=== PATIENT | male | born 1965 | race Two or more races ===

== ENCOUNTER 2016-07-19 09:36 | Emergency (ER) | payer BC ==
[~2016-07-19] VITALS: Ht 162.6 cm; Wt 77.1 kg
[~2016-07-19 09:36] MED LIST: ALBU8.5H2 IH; PROAIR
[2016-07-19 09:41] VITALS: BP 126/74
== END 2016-07-19 10:25 | disposition home or self-care (01) ==
LOC: ER 09:39
DX: H10.9 Unspecified conjunctivitis (principal); L50.9 Urticaria, unspecified; J45.909 Unspecified asthma, uncomplicated
CPT/HCPCS: 99283; A4606; Z7610

== ENCOUNTER 2016-07-31 20:59 | Emergency (ER) | payer BC ==
[~2016-07-31] VITALS: Ht 165.1 cm; Wt 72.6 kg
[2016-07-31 21:04] VITALS: BP 151/102
[2016-07-31] MEDS ORDERED: ALBUTEROL FS 2.5 MG/3 ML VIAL.NEB ONE (22:23)
[2016-07-31] MEDS ORDERED: IBUPROFEN 600 MG TABLET PO ONE ×2 (22:30→23:17)
[2016-07-31] MEDS ORDERED: ALBUTEROL FS 2.5 MG/3 ML VIAL.NEB NEB ONE (22:30)
== END 2016-07-31 23:59 | disposition home or self-care (01) ==
LOC: ER 21:02
DX: J45.909 Unspecified asthma, uncomplicated (principal); M54.5 Low back pain; Z87.891 Personal history of nicotine dependence
CPT/HCPCS: 72110; 94640; 99284; A4606; Z7610

== ENCOUNTER 2016-08-15 11:26 | Emergency (ER) | payer BC ==
[~2016-08-15] VITALS: Ht 165.1 cm; Wt 72.6 kg
[2016-08-15] MEDS ORDERED: ALBUTEROL FS 2.5 MG/3 ML VIAL.NEB ONE (11:38)
[2016-08-15] MEDS ORDERED: IPRATROPIUM NEB FS 0.5 MG/2.5 ML AMPUL.NEB ONE (11:39)
[2016-08-15] MEDS ORDERED: predniSONE 20 MG TABLET ONE (11:54)
[2016-08-15] MEDS ORDERED: IPRATROPIUM NEB FS 0.5 MG/2.5 ML AMPUL.NEB NEB ONE (12:00)
[2016-08-15] MEDS ORDERED: predniSONE 20 MG TABLET PO ONE (12:00)
[2016-08-15] MEDS ORDERED: ALBUTEROL FS 2.5 MG/3 ML VIAL.NEB CONTNEB ONE (12:00)
[2016-08-15 12:28] VITALS: BP 125/86
== END 2016-08-15 12:28 | disposition home or self-care (01) ==
LOC: ER 11:29
DX: J45.909 Unspecified asthma, uncomplicated (principal)
CPT/HCPCS: 94640 ×2; 99284; A4606; J7512; Z7610

== ENCOUNTER 2017-07-24 18:28 | Emergency (ER) | payer BC, MEDICAID ==
[~2017-07-24] VITALS: Ht 177.8 cm; Wt 81.6 kg
[~2017-07-24 18:28] MED LIST changes: -ALBU8.5H2 IH; +ALBU8.5H8 IH
--- NOTE | 2017-07-24 18:37 | NUR ---
PT AMBULATORY TO ER BED 13. C/O SOB, HX OF ASTHMA. STATES INHALER NOT WORKING. PLACED ON MONITOR. HYPERTENSIVE OTHERWISE STABLE VITALS. AWAITING MD MORA.
[2017-07-24] MEDS ORDERED: ALBUTEROL FS 2.5 MG/0.5 ML VIAL.NEB NEB STA (18:40)
--- NOTE | 2017-07-24 18:43 | NUR ---
RAINER TUCKER AT BEDSIDE FOR EVAL.
--- NOTE | 2017-07-24 18:48 | NUR ---
RT AT BEDSIDE FOR BREATHING TREATMENT.
[2017-07-24] MEDS ORDERED: ALBUTEROL FS 2.5 MG/3 ML VIAL.NEB ONE (18:51)
[2017-07-24] MEDS ORDERED: methylPREDNISolone SOD SUCC 125 MG/2ML VIAL IM SCH (19:00)
[2017-07-24] MEDS ORDERED: ALBUTEROL FS 2.5 MG/3 ML VIAL.NEB NEB ONE (19:30)
[2017-07-24] MEDS ORDERED: IPRATROPIUM NEB FS 0.5 MG/2.5 ML AMPUL.NEB NEB ONE (19:30)
[2017-07-24] MEDS ORDERED: methylPREDNISolone SOD SUCC 125 MG/2ML VIAL ONE (19:35)
[2017-07-24] MEDS ORDERED: ALBUTEROL FS 2.5 MG/0.5 ML VIAL.NEB ONE (19:48)
[2017-07-24] MEDS ORDERED: IPRATROPIUM NEB FS 0.5 MG/2.5 ML AMPUL.NEB ONE (19:49)
[2017-07-24] MEDS ORDERED: Magnesium 1GM/D5W 100ML PREMIX 200 ML IV ONE (20:20)
[2017-07-24] MEDS ORDERED: Magnesium 1GM/D5W 100ML PREMIX 0 ML IV ONE (20:33)
--- NOTE | 2017-07-24 21:41 | NUR ---
Patient does not wish to proceed with medical care recommended by Luba TUCKER. Patient given information related to possible complications, up to and including , which could occur as a result of leaving the hospital at this time. Patient verbalizes understanding of risks involved due to leaving against medical advice. Patient has signed AMA form.Patient discharged to home in stable condition. Written and verbal after care instructions given. Patient verbalizes understanding of instruction.
[2017-07-24 21:43] VITALS: BP 135/92
== END 2017-07-24 21:45 | disposition left against medical advice (07) ==
LOC: ER 18:30
DX: J45.901 Unspecified asthma with (acute) exacerbation (principal); F10.10 Alcohol abuse, uncomplicated; F17.200 Nicotine dependence, unspecified, uncomplicated; Z53.20 Procedure and treatment not carried out because of patient's decision for unspecified reasons
CPT/HCPCS: 71045-TC; A4606; Z7610

== ENCOUNTER 2019-08-07 12:28 | Emergency (ER) | payer MEDICAID ==
[~2019-08-07] VITALS: Ht 165.1 cm; Wt 72.6 kg
[2019-08-07 12:36] VITALS: BP 135/33
--- NOTE | 2019-08-07 12:57 | NUR ---
PT SEEN AND EXAMINED DEGRASSE SAND WORKER.
[2019-08-07] MEDS ORDERED: IPRATROPIUM NEB FS 0.5 MG/2.5 ML AMPUL.NEB NEB ONE (13:00)
[2019-08-07] MEDS ORDERED: ALBUTEROL FS 2.5 MG/3 ML VIAL.NEB NEB ONE (13:00)
--- NOTE | 2019-08-07 13:09 | NUR ---
RT AT BEDSIDE FOR BREATHING TREATMENT.
--- NOTE | 2019-08-07 13:14 | NUR ---
MANAGER OF ADMINISTRATION AT BEDSIDE FOR XRAY.
[2019-08-07] MEDS ORDERED: ALBUTEROL FS 2.5 MG/3 ML VIAL.NEB ONE (13:36)
[2019-08-07] MEDS ORDERED: IPRATROPIUM NEB FS 0.5 MG/2.5 ML AMPUL.NEB ONE (13:36)
--- NOTE | 2019-08-07 13:57 | NUR ---
Patient discharged to home in stable condition. Written and verbal after care instructions given. Patient verbalizes understanding of instruction.
== END 2019-08-07 13:58 | disposition home or self-care (01) ==
LOC: ER 12:42
DX: J20.9 Acute bronchitis, unspecified (principal); J45.909 Unspecified asthma, uncomplicated; F10.10 Alcohol abuse, uncomplicated; Y90.9 Presence of alcohol in blood, level not specified; Z79.899 Other long term (current) drug therapy
CPT/HCPCS: 71045-TC

== ENCOUNTER 2019-09-02 20:17 | Emergency (ER) | payer MEDICAID ==
[~2019-09-02] VITALS: Ht 165.1 cm; Wt 74.8 kg
[2019-09-02 20:26] VITALS: BP 171/94
== END 2019-09-02 20:50 | disposition home or self-care (01) ==
LOC: ER 20:17
DX: J20.9 Acute bronchitis, unspecified (principal); J45.909 Unspecified asthma, uncomplicated; Z79.899 Other long term (current) drug therapy

== ENCOUNTER 2020-03-14 14:40 | Emergency (ER) | payer MEDICAID ==
[~2020-03-14] VITALS: Ht 167.6 cm; Wt 72.6 kg
--- NOTE | 2020-03-14 15:00 | NUR ---
FROM HOME C/O BACK PAIN SINCE YESTERDAY, PT STS "LIFTED HEAVY THINGS AT WORK" PATIENT A/OX4, BREATHING EVEN AND UNLABORED, AMBULATORY WITH STEADY GAIT. NEEDS ATTENDED. KEPT COMFORTABLE.
[2020-03-14] MEDS ORDERED: HYDROCODONE/APAP 5/325MG TABLET ONE (15:23)
[2020-03-14] MEDS ORDERED: IBUPROFEN 400 MG TABLET ONE (15:23)
[2020-03-14] MEDS ORDERED: IBUPROFEN 400 MG TABLET PO ONE (15:30)
[2020-03-14] MEDS ORDERED: HYDROCODONE/APAP 5/325MG TABLET PO ONE (15:30)
[2020-03-14 16:09] LABS: BASOPHILS % (AUTO) 0.6 % (0.0-2.0); EOSINOPHILS % (AUTO) 3.5 % (0.0-6.0); HEMATOCRIT 43 % (39-51); HEMOGLOBIN 14.1 g/dL (13.5-17.5); LYMPHOCYTES # (AUTO) 2.3 /CMM (0.8-4.8); LYMPHOCYTES % (AUTO) 37.6 % (20.0-44.0); MEAN CORPUSCULAR HGB CONC 33 g/dl (31.0-36.0); MEAN CORPUSCULAR VOLUME 97 fL (80-96); MONOCYTES # (AUTO) 0.4 /CMM (0.1-1.30); MONOCYTES % (AUTO) 6.6 % (2.0-12.0); NEUTROPHILS # (AUTO) 3.2 /CMM (1.8-8.9); NEUTROPHILS % (AUTO) 51.7 % (43.0-81.0); PLATELET COUNT (AUTO) 237 /CMM (150-450); WHITE BLOOD COUNT (AUTO) 6.2 K/uL (4.3-11.0)
[2020-03-14 16:30] LABS: APPEARANCE,URINE CLEAR (CLEAR); BILIRUBIN,URINE NEGATIVE (NEGATIVE); BLOOD, URINE NEGATIVE Ery/uL (NEGATIVE); COLOR,URINE YELLOW (YELLOW); KETONES,URINE NEGATIVE (NEGATIVE); LEUKOCYTE ESTERASE ,URINE NEGATIVE (NEGATIVE); NITRITE, URINE NEGATIVE (NEGATIVE); PROTEIN,URINE NEGATIVE (NEGATIVE); UGLUCOSE NEGATIVE (NEGATIVE); UROBILINOGEN,URINE 0.2 EU/dL (0.2)
[2020-03-14 16:34] LABS: CALCIUM, SERUM 9.1 mg/dL (8.5-10.1); CARBON DIOXIDE 31 mmol/L (21-32); CHLORIDE 104 mmol/L (98-107); CREATININE 0.8 mg/dL (0.6-1.3); GLUCOSE 90 mg/dL (74-106); LIPASE 91 U/L (73-393); POTASSIUM 4.7 mmol/L (3.5-5.1); SODIUM SERUM 141 mmol/L (136-145); UREA NITROGEN, BLOOD 15 mg/dL (7-18)
[2020-03-14 17:16] VITALS: BP 130/75
--- NOTE | 2020-03-14 17:16 | NUR ---
Patient discharged to home in stable condition. Written and verbal after care instructions given. Patient verbalizes understanding of instruction.
== END 2020-03-14 17:16 | disposition home or self-care (01) ==
LOC: ER 14:45
DX: M51.34 Other intervertebral disc degeneration, thoracic region (principal); J45.909 Unspecified asthma, uncomplicated; Z98.890 Other specified postprocedural states; Z79.899 Other long term (current) drug therapy
CPT/HCPCS: 36415; 72100-TC; 80048-TC; 81000-TC; 83690-TC; 84484-TC; 85025-TC

== ENCOUNTER 2020-04-27 10:06 | Emergency (ER) | payer MEDICAID ==
[~2020-04-27] VITALS: Ht 165.1 cm; Wt 72.6 kg
--- NOTE | 2020-04-27 10:32 | NUR ---
PT BIB SELF C/O CONGESTION, PT STATES THAT HE WAS HAVING FEVER LAST NIGHT. UPON ARRIVAL PTS TEMP WAS 99.1. VS CHECKED. AWAITING MD MORA.
--- NOTE | 2020-04-27 10:58 | NUR ---
CALLED LAB FOR COVID SWAB AND RAPID FLU. STATED THEY WILL DELIVER
--- NOTE | 2020-04-27 10:58 | NUR ---
RT CALLED FOR BREATHING TX
[2020-04-27] MEDS ORDERED: predniSONE 20 MG TABLET ONE (10:59)
[2020-04-27] MEDS ORDERED: ACETAMINOPHEN ES 500 MG TABLET ONE (10:59)
[2020-04-27] MEDS ORDERED: ALBUTEROL FS 2.5 MG/3 ML VIAL.NEB CONTNEB ONE (11:00)
[2020-04-27] MEDS ORDERED: ACETAMINOPHEN ES 500 MG TABLET PO ONE (11:00)
[2020-04-27] MEDS ORDERED: IPRATROPIUM NEB FS 0.5 MG/2.5 ML AMPUL.NEB NEB ONE (11:00)
[2020-04-27] MEDS ORDERED: predniSONE 20 MG TABLET PO ONE (11:00)
[2020-04-27] MEDS ORDERED: ALBUTEROL FS 2.5 MG/3 ML VIAL.NEB ONE (11:08)
[2020-04-27] MEDS ORDERED: IPRATROPIUM NEB FS 0.5 MG/2.5 ML AMPUL.NEB ONE (11:08)
--- NOTE | 2020-04-27 11:10 | NUR ---
COVID SWAB AND RAPID IINFLUENZA SWAB DONE. SENT TO LAB
--- NOTE | 2020-04-27 12:14 | NUR ---
LAB CALLED PT COVID NEGATIVE (-)
[2020-04-27 12:30] VITALS: BP 142/81
--- NOTE | 2020-04-27 12:30 | NUR ---
Patient discharged to home in stable condition. Written and verbal after care instructions given. Patient verbalizes understanding of instruction.
== END 2020-04-27 12:30 | disposition home or self-care (01) ==
LOC: ER 10:14
DX: J45.901 Unspecified asthma with (acute) exacerbation (principal); Z20.828 Contact with and (suspected) exposure to other viral communicable diseases
CPT/HCPCS: 87426; 87804; 94640; 99283; C9803; J7512

== ENCOUNTER 2020-12-17 14:33 | Emergency (ER) | payer MEDICAID ==
[~2020-12-17] VITALS: Ht 165.1 cm; Wt 72.6 kg
--- NOTE | 2020-12-17 14:45 | NUR ---
PT CAME IN C/O LOW BACK AND BILATERAL WRIST PAIN OF 5/10, X 3 DAYS,STS, HE'S BEEN BUSY AT WORK. AOX4, NO SOB NOTED AT THIS TIME, NO SIGN OF ANY ACUTE DISTRESS NOTED. WILL CONTINUE WITH PLAN OF CARE
[2020-12-17] MEDS ORDERED: KETOROLAC TROMETHAMINE INJ 30 MG/ML VIAL ONE (15:59)
[2020-12-17] MEDS ORDERED: KETOROLAC TROMETHAMINE INJ 60 MG/2 ML VIAL IM ONE (16:00)
[2020-12-17] MEDS ORDERED: METH-807 PO (16:07)
[2020-12-17] MEDS ORDERED: IBUP-1957 PO (16:07)
--- NOTE | 2020-12-17 16:08 | NUR ---
TORADOL NON ADMINISTERED D/T PT REFUSED STATING " I PREFER ORAL MEDICATION", BENEFITS AND RISK OR REFUSING MEDS EXPLAINED, GARRETT RITTER MADE AWARE. MEDICATION WASTED AND WITNESSED WITH ANOTHER NURSE, CAMELIA BARRIENTOS. WILL CONTINUE WITH PLAN OF CARE
[2020-12-17] MEDS ORDERED: IBUPROFEN 400 MG TABLET ONE (16:12)
[2020-12-17] MEDS ORDERED: IBUPROFEN 400 MG TABLET PO ONE (16:30)
--- NOTE | 2020-12-17 16:32 | NUR ---
Pt staes "feel Better" Patient discharged to home in stable condition. Written and verbal after care instructions given. Patient verbalizes understanding of instruction.
[2020-12-17 16:33] VITALS: BP 125/76
== END 2020-12-17 17:33 | disposition home or self-care (01) ==
LOC: ER 14:40
DX: M54.5 Low back pain (principal); J45.909 Unspecified asthma, uncomplicated; Z98.890 Other specified postprocedural states; Z79.899 Other long term (current) drug therapy
CPT/HCPCS: 99283; J1885

== ENCOUNTER 2022-06-08 02:00 | Inpatient (IN) | payer MEDICAID ==
[~2022-06-08] VITALS: Ht 177.8 cm; Wt 72.6 kg
[~2022-06-08 02:00] MED LIST changes: +IBUP-1957 PO; +METH750T3 PO
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
[2022-06-08] MEDS ORDERED: IBUPROFEN 400 MG TABLET ONE (02:40)
--- NOTE | 2022-06-08 02:43 | NUR ---
patient going to ct
[2022-06-08] MEDS ORDERED: IBUPROFEN 400 MG TABLET PO ONE (03:00)
[2022-06-08] MEDS ORDERED: MORPHINE SULFATE INJ 2 MG/ML DISP.SYRIN IV ONE (05:30)
[2022-06-08] MEDS ORDERED: ONDANSETRON HCL/PF 4 MG/2 ML VIAL IV ONE (05:30)
[2022-06-08] MEDS ORDERED: ONDANSETRON HCL/PF 4 MG/2 ML VIAL ONE (05:33)
[2022-06-08] MEDS ORDERED: MORPHINE SULFATE INJ 4 MG/ML DISP.SYRIN ONE (05:34)
--- NOTE | 2022-06-08 05:35 | NUR ---
COVID SWAB DONE AND SENT TO LAB
--- NOTE | 2022-06-08 05:42 | NUR ---
[facility] PAGED
--- NOTE | 2022-06-08 05:44 | NUR ---
BLOOD COLLECTED AND SENT TO LAB
--- NOTE | 2022-06-08 05:44 | NUR ---
IV LINE ESTABLISHED, [id number]
[2022-06-08 05:55] LABS: BASOPHILS # (AUTO) 0.2 K/uL (0.0-0.2); BASOPHILS % (AUTO) 1.9 % (0.0-2.0); EOSINOPHILS % (AUTO) 0.6 % (0.0-6.0); HEMATOCRIT 41 % (39-51); HEMOGLOBIN 13.8 g/dL (13.5-17.5); LYMPHOCYTES # (AUTO) 3.4 K/uL (0.8-4.8); LYMPHOCYTES % (AUTO) 28.5 % (20.0-44.0); MEAN CORPUSCULAR HGB CONC 34 g/dl (31.0-36.0); MEAN CORPUSCULAR VOLUME 95 fL (80-96); MONOCYTES # (AUTO) 2.4 K/uL (0.1-1.30); NEUTROPHILS # (AUTO) 5.8 K/uL (1.8-8.9); PLATELET COUNT (AUTO) 274 K/uL (150-450); RED BLOOD CELL COUNT(AUTO) 4.34 MIL/uL (4.5-6.0); WHITE BLOOD COUNT (AUTO) 11.9 K/uL (4.3-11.0)
[2022-06-08 06:00] LABS: CALCIUM, SERUM 9.1 mg/dL (8.5-10.1); CREATININE 0.9 mg/dL (0.6-1.3); POTASSIUM 4.3 mmol/L (3.5-5.1)
[2022-06-08] MEDS ORDERED: ACETAMINOPHEN 325 MG TABLET PO PRN (06:00)
[2022-06-08] MEDS ORDERED: ONDANSETRON HCL/PF 4 MG/2 ML VIAL IVP PRN (06:00)
[2022-06-08] MEDS ORDERED: MORPHINE SULFATE INJ 2 MG/ML DISP.SYRIN IV PRN (06:00)
--- NOTE | 2022-06-08 08:59 | NUR ---
seen by dr escalante,patient wants to go home, daughter called to pick him up per request
--- NOTE | 2022-06-08 09:00 | NUR ---
PT DAUGHTER NUMBER IS [phone]
--- NOTE | 2022-06-08 09:31 | NUR ---
room 323-2
--- NOTE | 2022-06-08 09:55 | NUR ---
report given to josephine DENISE
--- NOTE | 2022-06-08 10:00 | NUR ---
moved to inpatient room safely
[2022-06-08 12:00] VITALS: BP 138/94
[2022-06-08 16:00] VITALS: BP 121/64
[2022-06-08] MEDS: HYDROCODONE/APAP 5/325MG TABLET PO PRN ×2 (17:10→21:33)
[2022-06-08 17:55] LABS: BAND % (MANUAL) 1 % (0.0-5.0); LYMPHOCYTES % (MANUAL) 24 % (16-48); MONOCYTES % (MANUAL) 15 % (0-11.0); NEUTROPHILS % (MANUAL) 60 (42-76)
--- NOTE | 2022-06-08 19:45 | NUR ---
MS DENISE OPENING NOTE RECEIVED PATIENT IN BED; AWAKE, ALERT AND ORIENTED X 4. BREATHING EVEN AND NONLABORED. ON ROOM AIR; TOLERATING WELL. NOT IN ANY FORM OF RESPIRATORY OR CARDIAC DISTRESS NOTED. NO C/O ANY PAIN OR DISCOMFORT MADE AT THIS TIME. WITH IV ACCESS ON RIGHT ANTECUBITAL 20G; PATENT, INTACT AND SALINE LOCKED. ABLE TO MAKE NEEDS KNOWN. SAFETY MEASURES IMPLEMENTED: CALL LIGHT AND TABLE WITHIN REACH, SIDE RAILS UP X 2, BED IN LOWEST LOCKED POSITION. WILL CONTINUE TO MONITOR. Addendum: 06/09/22 at 0043 by CARLY HARKINS RN WITH IV ACCESS ON LEFT AC 20G; PATENT, INTACT AND SALINE LOCKED.
[2022-06-08 20:00] VITALS: BP 114/67
--- NOTE | 2022-06-08 21:33 | NUR ---
RN NOTE PATIENT C/O LOWER BACK PAIN WITH 7/10 PAIN SCALE. PRN NORCO 5/325 MG 1 TAB GIVEN PO ORDERED. PATIENT MADE COMFORTABLE IN BED. WILL CONTINUE TO MONITOR AND REASSESS PATIENT.
[2022-06-09] MEDS: HYDROCODONE/APAP 5/325MG TABLET PO PRN (02:09)
--- NOTE | 2022-06-09 02:09 | NUR ---
RN NOTE COVERING FOR CAMELIA CARROLL WHILE ON BREAK. PT COMPLAINED OF BACK PAIN 12/25. ADMINISTERED NORCO 5-325 MG FOR MODERATE PAIN. MADE COMFORTABLE IN BED. ALL NEEDS MET AT THIS TIME.
--- NOTE | 2022-06-09 06:45 | NUR ---
MS RN CLOSING NOTE PATIENT IN BED; AWAKE, A/O X 4. STABLE ON ROOM AIR. BREATHING EQUAL AND UNLABORED. IN NO ACUTE DISTRESS NOTED. DENIES ANY PAIN OR DISCOMFORT AT THIS TIME. WITH IV ACCESS ON LEFT AC 20G; PATENT, INTACT AND SALINE LOCKED. ALL DUE MEDS GIVEN ORDERED. ALL NEEDS ATTENDED TO. SAFETY MEASURES MAINTAINED: CALL LIGHT AND TABLE WITHIN EASY REACH, SIDE RAILS UP X 2, BED IN LOWEST LOCKED POSITION. ENDORSED TO MORNING SHIFT FOR DAVID.
[2022-06-09 07:00] VITALS: BP 124/61
--- NOTE | 2022-06-09 07:40 | NUR ---
RN OPENING NOTE RECEIVED PATIENT IN BED; AWAKE, ALERT AND ORIENTED X 4. BREATHING EVEN AND NONLABORED. ON ROOM AIR; TOLERATING WELL. NOT IN ANY FORM OF RESPIRATORY OR CARDIAC DISTRESS NOTED. NO C/O ANY PAIN OR DISCOMFORT MADE AT THIS TIME. WITH IV ACCESS ON LEFT ANTECUBITAL 20G; PATENT, INTACT AND SALINE LOCKED. ABLE TO MAKE NEEDS KNOWN. SAFETY MEASURES IMPLEMENTED: CALL LIGHT AND TABLE WITHIN REACH, SIDE RAILS UP X 2, BED IN LOWEST LOCKED POSITION. WILL CONTINUE TO MONITOR.
[2022-06-09 11:27] LABS: BASOPHILS % (AUTO) 0.6 % (0.0-2.0); EOSINOPHILS % (AUTO) 4.1 % (0.0-6.0); HEMATOCRIT 41 % (39-51); HEMOGLOBIN 13.7 g/dL (13.5-17.5); LYMPHOCYTES # (AUTO) 2.3 K/uL (0.8-4.8); MEAN CORPUSCULAR HGB CONC 33 g/dl (31.0-36.0); MEAN CORPUSCULAR VOLUME 95 fL (80-96); MONOCYTES # (AUTO) 0.5 K/uL (0.1-1.30); MONOCYTES % (AUTO) 8.3 % (2.0-12.0); NEUTROPHILS # (AUTO) 3.4 K/uL (1.8-8.9); PLATELET COUNT (AUTO) 259 K/uL (150-450); RED BLOOD CELL COUNT(AUTO) 4.34 MIL/uL (4.5-6.0); WHITE BLOOD COUNT (AUTO) 6.4 K/uL (4.3-11.0)
[2022-06-09 11:54] LABS: CALCIUM, SERUM 8.6 mg/dL (8.5-10.1); CREATININE 0.9 mg/dL (0.6-1.3); MAGNESIUM 2.2 mg/dL (1.8-2.4); PHOSPHORUS 3.3 mg/dL (2.5-4.9); POTASSIUM 4.1 mmol/L (3.5-5.1)
--- NOTE | 2022-06-09 13:00 | NUR ---
AVIATION MAINTENANCE INSTRUCTOR NOTE PATIENT DISCHARGE IN STABLE MEDICAL CONDITION. A/OX4. VS TAKEN, STABLE. NO IV ACCESS.NAME ARM BAND REMOVED. BELONGINGS CHECKED AND SIGNED. HEALTH TEACHING AND DISCHARGE INSTRUCTION GIVEN TO THE PATIENT. VERBALIZED UNDERSTANDING. PATIENT LEFT VIA PRIVATE CAR WITH HIS FAMILY. ACCOMPANIED TO THE EXIT. CHARGE NURSE AWARE OF DISCHARGE.
== END 2022-06-09 13:15 | disposition home or self-care (01) | DRG 135 ==
LOC: ER 02:02 → MED 09:44
DX: S22.41XA Multiple fractures of ribs, right side, initial encounter for closed fracture (principal); J45.909 Unspecified asthma, uncomplicated; M17.11 Unilateral primary osteoarthritis, right knee; Z20.822 Contact with and (suspected) exposure to COVID-19; V43.52XA Car driver injured in collision with other type car in traffic accident, initial encounter; Y93.89 Activity, other specified; Y92.410 Unspecified street and highway as the place of occurrence of the external cause
CPT/HCPCS: 36415; 71100-TC; 72125-TC; 73564-TC; 80048-TC; 83735-TC; 84100-TC; 85025-TC; 85730-TC; 87081-TC; C9803; G0378; J2270; J2405